=== PATIENT | male | born 1935 | race Two or more races ===

== ENCOUNTER 2018-01-09 08:29 | Outpatient (CLI) | payer OTHER ==
[~2018-01-09 08:29] MED LIST: ATENOLOL50 MG PO; DIOVAN160 M1 PO; FINASTERIDE5 MG PO
== END 2018-01-09 08:44 | disposition home or self-care (01) ==
LOC: TOM 08:29
DX: K56.50 Intestinal adhesions [bands], unspecified as to partial versus complete obstruction (principal); Q41.9 Congenital absence, atresia and stenosis of small intestine, part unspecified; R54 Age-related physical debility

== ENCOUNTER 2018-09-08 18:27 | Emergency (ER) | payer OTHER ==
[~2018-09-08] VITALS: Ht 165.1 cm; Wt 95.3 kg
[2018-09-08] MEDS ORDERED: ZOCOR20 MG (18:37)
== END 2018-09-08 22:21 | disposition home or self-care (01) ==
LOC: ER 18:27
DX: N39.0 Urinary tract infection, site not specified (principal); B96.89 Other specified bacterial agents as the cause of diseases classified elsewhere

== ENCOUNTER 2018-09-19 16:17 | Inpatient (IN) | payer OTHER ==
[~2018-09-19] VITALS: Ht 165.1 cm; Wt 90.7 kg
[~2018-09-19 16:17] MED LIST changes: +ZOCOR20 MG
[2018-09-24] MEDS ORDERED: SIMVASTATIN10 MG PO (14:53)
[2018-09-24] MEDS ORDERED: ATENOLOL50 MG PO (14:53)
[2018-09-24] MEDS ORDERED: ACIDOPHILUS-PE1 EAC2 PO (14:53)
[2018-09-24] MEDS ORDERED: LOSARTAN POTAS100 MG PO (14:53)
[2018-09-24] MEDS ORDERED: TAMSULOSIN HCL0.4 MG PO (14:53)
[2018-09-24] MEDS ORDERED: PROSCAR5 MG PO (14:53)
== END 2018-09-24 15:03 | disposition home or self-care (01) | DRG 690 ==
LOC: ER 16:17 → MEDJ 09-20 12:58 → MEDI 09-20 12:58 → MEDJ 09-20 13:56
PROVIDERS: ADMIT Internal Medicine
PROC: 8E0ZXY6 Isolation (ICD-10-PCS; principal; 2018-09-20)
PROC: BT43ZZZ Ultrasonography of Bilateral Kidneys (ICD-10-PCS; 2018-09-21)
DX: N39.0 Urinary tract infection, site not specified (principal); N17.8 Other acute kidney failure; B96.29 Other Escherichia coli [E. coli] as the cause of diseases classified elsewhere; Z16.12 Extended spectrum beta lactamase (ESBL) resistance; E86.0 Dehydration; K64.8 Other hemorrhoids; I12.9 Hypertensive chronic kidney disease with stage 1 through stage 4 chronic kidney disease, or unspecified chronic kidney disease; N18.1 Chronic kidney disease, stage 1; E78.49 Other hyperlipidemia; N40.0 Benign prostatic hyperplasia without lower urinary tract symptoms

== ENCOUNTER 2022-10-07 11:15 | Emergency (ER) | payer OTHER ==
[~2022-10-07] VITALS: Ht 162.6 cm; Wt 95.3 kg
[~2022-10-07 11:15] MED LIST changes: +ACIDOPHILUS-PE1 EAC2 PO; +LOSARTAN POTAS100 MG PO; +PROSCAR5 MG PO; +SIMVASTATIN10 MG PO; +TAMSULOSIN HCL0.4 MG PO
[2022-10-07] MEDS ORDERED: METAXALONE800 MG PO (17:51)
[2022-10-07] MEDS ORDERED: ADVIL DUAL ACT1 EACH PO (17:53)
== END 2022-10-07 20:06 | disposition home or self-care (01) ==
LOC: ER 11:15
DX: M54.50 Low back pain, unspecified (principal)